=== PATIENT | female | born 1990 | race Caucasian/White ===

== ENCOUNTER → 2024-09-13 | Outpatient (CLI) | payer BC, SELFPAY ==
[2024-09-13 16:33] LABS: Hepatitis C Antibody Nonreactive (Nonreactive)
== END | disposition home or self-care (01) ==
LOC: LAB 13:23
PROVIDERS: Referring Provider Obstetrics & Gynecology; Visit Provider Obstetrics & Gynecology
DX: O09.93 Supervision of high risk pregnancy, unspecified, third trimester (principal); Z3A.00 Weeks of gestation of pregnancy not specified
CPT/HCPCS: 36415; 86803

== ENCOUNTER 2024-10-14 23:30 | Inpatient (IN) | payer OTHER, SELFPAY ==
[2024-10-14 23:05] VITALS: BP 105/57; PULSE 85
[2024-10-14 23:17] VITALS: BMI 26.4
[2024-10-14 23:37] LABS: ROM Internal Control Test YES-OK TO RESULT pt. (Internal QC); ROM Patient Test POSITIVE (Negative)
[2024-10-14 23:38] LABS: Record Kit Lot#, ROM+ K3358
[2024-10-15] VITALS (30 sets, daily range): BP systolic 96–126; BP diastolic 55–74; PULSE 62–91; RESP 16; TEMP 36.3–36.8; O2SAT 99–100
[2024-10-15 00:21] LABS: Absolute Lymphocyte Count 1.72 X10^3/uL (0.83-4.51); Absolute Neutrophil Count 5.7 X10^3/uL (2.0-7.7); Basophil# 0.02 X10^3/uL; Basophil% 0.2 % (0-1); Eosinophil# 0.07 X10^3/uL; Eosinophils% 0.9 % (0-5); Hematocrit 34.2 % (37-47); Hemoglobin 11.7 g/dL (12.0-15.0); Lymphocyte # 1.72 X10^3/ul (0.83-4.51); Lymphocyte % 20.9 % (19-41); Mean Corp Hgb Conc 34.2 g/dL (32-36); Mean Corpuscular Hgb 30.8 pg (27.0-32.0); Mean Platelet Vol. 10.9 fl (6.2-12.0); Monocyte# 0.72 X10^3/uL; Monocyte% 8.8 % (0-10); NRBC Flagged by Analyzer 0 % (0-5); Neutrophil # 5.66 X10^3/uL (2.7-7.7); Neutrophil % 68.8 % (47-70); Platelet Count 178 K/mm3 (150-450); RBC Distribution Width CV 12.8 % (11.6-14.6); White Blood Count 8.2 K/mm3 (4.4-11.0)
[2024-10-15 00:39] LABS: Syphilis Antibodies Nonreactive (Nonreactive)
[2024-10-15] MEDS: Oxytocin 10 UNITS/ML Vial IM (00:59)
--- NOTE | 2024-10-15 01:33 | OB.VAGDELI_ITS ---
Assessment & Plan (1) (spontaneous vaginal delivery): (2) Precipitate labor, with delivery: Maternal Data Information Final KATY: 10/13/24 Gestational age: 40+2 Vaginal Delivery Maternal Presentation Maternal Presentation: Active Labor Maternal Presentation: SROM prior to presentation Vaginal Delivery Information Procedure Performed: Spontaneous Vaginal Delivery Surgeon/Practitioner: Joanna Branham Date of Procedure: 10/15/24 Pre-Procedure Diagnosis: labor Post-Procedure Diagnosis: Type of anesthesia: None Special Medications: 1% lidocaine Estimated Blood Loss: 150 cc Time of Delivery: 00:51 Findings Description of procedure: Patient presented with SROM at 4 cm. She rapidly progressed to complete. She pushed over an intact peritoneum. The delivered OA. The shoulders delivered spontaneously followed by the rest of the body. The infant cried upon delivery. The infant was placed on the maternal abdomen. The cord was clamped and cut after one minute. The placenta delivered spontaneously. A 1st degree laceraton was repaired with 2-0 vicryl. Presentation: Vertex and YEN Amniotic Membrane Rupture Type: Spontaneous Amniotic Fluid Description: Clear Placental Delivery Description: Spontaneous Placenta Disposition: [facility] Specimen collected: No Cord Vessel Description: 3 Vessels Cord Entanglement: None Infant A Gender: Male (1 minute): 8 (5 minute): 9 Delayed Cord Clamping: Yes Instructional Support Specialist hotel lobby concierge: No Post Vaginal Deli Medications given after delivery: IM Pitocin Episiotomy Description: None Laceration: 1st degree Complication Complications: No
--- NOTE | 2024-10-15 01:43 | PCM.HP.OB ---
HPI - General General Date of Admission: 10/14/24 Date of Service: 10/15/24 Chief Complaint: SROM HPI Narrative ITZ FLORES, is a 34 F who presents with SROM clear. Contractions started on admission. GBS negative Maternal Data Information Final KATY: 10/30/24 [facility]ational age: 37+5 [facility] Medical History Polyhydramnios Anxiety Gestational diabetes Home Medications ?Medication ?Instructions ?Recorded ?Last Taken ?Type multivitamin no.47-iron fum 27 1 cap PO DAILY nutrition 10/14/24 10/13/24 History mg-folate no.1 1 mg-dha 300 mg capsule (PNV-DHA) Allergy/AdvReac Type Severity Reaction Status Date / Time No Known Allergies Allergy Verified 10/14/24 23:22 Surgical History [place] teeth extracted History 2 Elective abortions Hx Para 1 Spontaneous abortions Hx # Term Pregnancies Ectopic pregnancies Hx # Pregnancies Multiple births # of living children ROS Constitutional Constitutional: Denies fatigue, fever(s) or malaise Eyes Eyes: Denies change in vision ENT HEENT: Denies dizziness or headache(s) Cardiovascular Cardiovascular: Denies chest pain, dyspnea or lightheadedness Respiratory/Chest Respiratory/Chest: Denies cough or dyspnea Gastrointestinal Gastrointestinal: Denies change in bowel habits Genitourinary Genitourinary: Denies burning urination or genital lesions Integumentary Integumentary: Denies rash Neurologic Neurologic: Denies confusion, dizziness, headache(s), numbness or weakness Vital Signs Vital Signs Vital Signs: 10/14/24 23:05 10/14/24 23:05 10/15/24 01:07 Temperature Temperature Source Pulse Rate 85 Blood Pressure 105/57 L 126/73 H BP Systolic 105 126 BP Diastolic 57 73 Pulse Ox 10/15/24 01:07 10/15/24 01:07 10/15/24 01:07 Temperature Temperature Source Temporal Pulse Rate 86 Blood Pressure BP Systolic BP Diastolic Pulse Ox 100 10/15/24 01:07 10/15/24 01:12 10/15/24 01:12 Temperature 98.3 F Temperature Source Pulse Rate 82 Blood Pressure BP Systolic BP Diastolic Pulse Ox 99 10/15/24 01:17 10/15/24 01:17 10/15/24 01:22 Temperature Temperature Source Pulse Rate 79 79 Blood Pressure BP Systolic BP Diastolic Pulse Ox 99 10/15/24 01:22 10/15/24 01:23 10/15/24 01:23 Temperature Temperature Source Pulse Rate 75 Blood Pressure 106/60 BP Systolic 106 BP Diastolic 60 Pulse Ox 100 10/15/24 01:27 10/15/24 01:27 10/15/24 01:32 Temperature Temperature Source Pulse Rate 89 78 Blood Pressure BP Systolic BP Diastolic Pulse Ox 100 10/15/24 01:32 10/15/24 01:37 10/15/24 01:37 Temperature Temperature Source Pulse Rate 79 Blood Pressure 100/58 L BP Systolic 100 BP Diastolic 58 Pulse Ox 100 10/15/24 01:37 Temperature Temperature Source Pulse Rate Blood Pressure BP Systolic BP Diastolic Pulse Ox 100 Weight Weight: 79.016 kg Body Mass Index (BMI) 26.4 Physical Exam Const alert and no apparent distress General Appearance: cooperative HEENT normocephalic Resp normal respiratory effort Cardio regular rate GI soft to palpation GI Narrative: gravid, nontender, appropriate for gestational age Extremity no calf tenderness General Extremity: edema Skin no wounds Rashes: No rashes noted Psych activity/motor behavior normal Labs Labs Labs: Blood Type A POSITIVE Antibody Screen NEGATIVE Hct 34.2 % (37-47) L Hgb 11.7 g/dL (12.0-15.0) L Syphilis Total Ab Nonreactive (Nonreactive) Hepatitis C Antibody Nonreactive (Nonreactive) Assessment & Plan (1) Precipitate labor, with delivery: (2) 37 weeks gestation of : (3) GDM, class A1: PLAN: Plan Admit for labor
[2024-10-15] MEDS: Acetaminophen 500 MG Tablet 1000 MG PO (02:07)
[2024-10-15 02:26] LABS: Hepatitis C Antibody Nonreactive (Nonreactive)
[2024-10-15 03:29] LABS: Bedside Glucose 138 mg/dL (74-106)
[2024-10-15] MEDS: Ibuprofen 600 MG Tablet PO ×2 (12:45→20:31)
[2024-10-16 02:41] VITALS: BP 113/69; PULSE 68; RESP 16; TEMP 36.6; O2SAT 98
[2024-10-16] MEDS: Ibuprofen 600 MG Tablet PO (05:45)
[2024-10-16 05:57] LABS: Bedside Glucose 82 mg/dL (74-106)
[2024-10-16 07:58] VITALS: BP 95/61; PULSE 70; RESP 14; TEMP 36.3; O2SAT 98
--- NOTE | 2024-10-16 08:30 | PCM.DC.SUM ---
Providers Date of Admission: 10/14/24 Primary Care Physician: No Primary Care Phys Reason For Visit: VAG Diagnosis Discharge Diagnosis (1) Precipitate labor, with delivery: Status: Acute Code(s): O62.3 - Precipitate labor (2) 37 weeks gestation of : Status: Acute Code(s): Z3A.37 - 37 weeks gestation of (3) GDM, class A1: Status: Acute Code(s): O24.410 - Gestational diabetes mellitus in , diet controlled Medications at Discharge Home Medications multivitamin no.47-iron fum 27 mg-folate no.1 1 mg-dha 300 mg capsule (PNV-DHA) 1 cap PO DAILY nutrition 10/14/24 acetaminophen 500 mg tablet 1,000 mg (2 x 500 mg) PO Q6H PRN PRN Pain 1-10 Or Fever #0 tabs 10/16/24 ibuprofen 600 mg tablet 600 mg PO Q6H PRN PRN Pain Score 1-10 #0 tabs 10/16/24 Hospital Course Operations None Procedures None Summary of Care Provided Minutes Spent on Discharge: 15 Hospital Course: Patient had vaginal delivery. Hospital course was uneventful. Physical Exam Narrative Patient seen at bedside. Denies pain. Ambulating and voiding without difficulty. Lochia decreased. Desires discharge home today. Const alert and oriented x3 General Appearance: Negative for in distress HEENT normocephalic Eyes General Eye: normal appearance of both eyes Neck General: normal visual inspection Chest Chest: symmetrical chest wall rise Resp normal respiratory effort and normal air movement Effort and Inspection: symmetric chest movement; Negative for tachypneic Auscultation: clear to auscultation bilaterally Cardio regular rate and regular rhythm Peripheral Pulses: pulses 2+ throughout GI normal to inspection, nondistended, normoactive bowel sounds Narrative: Ice to perineum OB / External & Speculum: vaginal bleeding and other Lochia decreasing Uterus Palpation: uterus fundus firm (Below U) Extremity normal to inspection, full ROM and normal capillary refill Skin no rashes or lesions noted Neuro oriented x3, CN's II-XII intact bilaterally and gait normal Psych mental status grossly normal, thought process normal and activity/motor behavior normal Weight / BMI Weight Weight: 174 lb 3.2 oz Body Mass Index (BMI) 26.4 ABG / Lab / Microbiology Data 10/14/24 23:45 Laboratory: Laboratory Results - last 24 hr 10/16/24 05:36: POC Glucose 82 D/C Instructions Discharge Diet: No restrictions Discharge Activity: Return to Normal Activity, No Restrictions, May Drive, May Shower and May Take a Tub Bath (Warm water only. No bath salts, soaps, bubbles) May resume sexual activity in: 6-8 weeks Weight Bearing Status: Weight bearing as tolerated Call your doctor if you observe: Fever of 101 or Higher, Inability to urinate, Using more than 1 pad per hour, Shortness of breath, Dizziness, Chest pain, Calf discomfort and Uncontrolled pain DC O2, CPAP, BIPAP Needs Home O2 Discharge instructions: No Please Follow Up With: [facility] Cyrus HARRISON When: 2 weeks in office or virtual Meaningful Use Info Meaningful Use Meaningful Use Diagnoses (Choose all that apply): None applicable Ischemic Stroke Statin Dosing Therapy Reference: STATIN DOSE THERAPY REFERENCE: * Patients > 75 years receive moderate or high dose statin therapy. * Patients 75 years or YOUNGER should receive HIGH intensity statin dose unless contraindicated. You will be required to document reason for non-treatment if statin daily dose does not meet guidelines. HIGH DOSE STATIN THERAPY DAILY Atorvastatin > than or = to 40 mg Rosuvastatin > than or = to 20 mg Amlodipine + Atorvastatin > than or = to 2.5/40 mg Ezetimibe + Simvastatin 10/80 mg Simvastatin 80mg Discharge Plan Admission Admit Date/Time: 10/14/24 23:30 Primary Reason for Your Visit: Labor and Delivery Attending Provider: Joanna Branham Primary Care Provider: Care Physician,No Primary Discharge Orders/Prescriptions Prescriptions: New acetaminophen 500 mg Tablet 1,000 mg PO Q6H PRN PRN (Reason: Pain 1-10 Or Fever) Qty: 0 0RF ibuprofen 600 mg Tablet 600 mg PO Q6H PRN PRN (Reason: Pain Score 1-10) Qty: 0 0RF Continued PNV-DHA 27 mg iron-1 mg -300 mg capsule 1 cap PO DAILY Referrals / Follow Up: Karyna Ragland CNM [Med Staff - Adv Practice Prof] - Care Physician,No Primary [Primary Care Provider] - Disposition Disposition (needs filled in before D/C Order can be placed): Home, Self Care
--- NOTE | 2024-10-22 15:29 | NURSING ---
Follow up phone call made. Doing well, denies any pain or discomfort. States her bleeding is minimal, denies any headaches, visual disturbances, or any issues with Baby Blues. States is going well and that Emir is having plenty of wet and dirty diapers.
== END 2024-10-16 09:50 | disposition home or self-care (01) | DRG 807 ==
LOC: WPOUT 23:30 → WP 23:30
PROVIDERS: Admitting Provider Obstetrics & Gynecology; Referring Provider Obstetrics & Gynecology; Visit Provider Obstetrics & Gynecology
DX: O62.3 Precipitate labor (principal); Z37.0 Single live birth; O24.420 Gestational diabetes mellitus in childbirth, diet controlled; O42.92 Full-term premature rupture of membranes, unspecified as to length of time between rupture and onset of labor; O70.1 Second degree perineal laceration during delivery; Z3A.37 37 weeks gestation of pregnancy
CPT/HCPCS: 59025; 59050; 82962; 84112; 85025; 86780; 86803; 86850; 86900; 86901; 99221; G0378